=== PATIENT | male | born 1945 | race Caucasian/White ===

== ENCOUNTER 2016-10-11 17:48 | Inpatient (IN) | payer MEDICARE ==
[~2016-10-11] VITALS: Ht 177.8 cm; Wt 95.7 kg
[2016-10-11] MEDS ORDERED: SODIUM CHLORIDE 0.9% 2,000 ML ONE (19:51)
[2016-10-11] MEDS ORDERED: SALINE FLUSH 10 ML FLUSH PRN (20:15)
[2016-10-11] MEDS ORDERED: LACTULOSE SOLN 20GM/30ML UDC PO PRN (20:15)
[2016-10-11] MEDS ORDERED: SODIUM CHLORIDE 0.45% 1,000 ML IV SCH (20:15)
[2016-10-11] MEDS ORDERED: ACETAMINOPHEN 325 MG TAB PO PRN (20:15)
[2016-10-11] MEDS ORDERED: ALU/MAG/SIM 30 ML UDC PO PRN (20:15)
[2016-10-11] MEDS ORDERED: SODIUM CHLORIDE 0.9% 100 ML IV ONE (20:27)
[2016-10-11] MEDS ORDERED: CEFTRIAXONE 1 GM VIAL ONE (20:27)
[2016-10-11 23:19] VITALS: BP_SYST 98; RESP 31; TEMP 96.8
[2016-10-11 23:26] VITALS: BMI 33.0
[2016-10-11 23:30] VITALS: BP_SYST 99; RESP 27
[2016-10-11 23:53] VITALS: BP_SYST 96; RESP 25
[2016-10-12] VITALS (47 sets, daily range): BP systolic 61–104; RESP 16–26; TEMP 96.4–98.3
[2016-10-12] MEDS: SODIUM CHLORIDE 0.9% FLUSH BAG 500 ML IV SCH (05:09)
[2016-10-12] MEDS ORDERED: SODIUM CHLORIDE 0.9% 1,000 ML IV ONE (06:15)
[2016-10-12] MEDS ORDERED: DEXTROSE 50% SYRINGE 50 ML IV PRN (06:20)
[2016-10-12] MEDS ORDERED: GLUCAGON 1 MG VIAL IM PRN (06:20)
[2016-10-12] MEDS ORDERED: PHARMACY TO DOSE ZOSYN IV SCH (08:05)
[2016-10-12] MEDS ORDERED: PHARMACY TO DOSE VANCOMYCIN IV SCH (08:05)
[2016-10-12] MEDS ORDERED: CEFTRIAXONE 1 GM in SODIUM CHLORIDE 0.9% 50 ML IV SCH (09:00)
[2016-10-12] MEDS: SALINE FLUSH 10 ML FLUSH SCH ×2 (09:05→20:44)
[2016-10-12] MEDS: DILAUDID 1 MG/ML AMP IV PRN ×2 (09:08→13:24)
[2016-10-12] MEDS: SODIUM CHLORIDE 0.9% 1,000 ML IV SCH ×2 (09:15→19:44)
[2016-10-12] MEDS ORDERED: VANCOMYCIN 2,500 MG in SODIUM CHLORIDE 0.9% 500 ML IV ONE (09:45)
[2016-10-12] MEDS: PIPERACIL/TAZO 2.25GM/50ML 50 ML IV SCH ×3 (11:01→22:08)
[2016-10-12] MEDS: BACITRACIN OINT TOPICAL SCH (20:44)
[2016-10-12] MEDS: COLLAGENASE OINT 30 GM TOPICAL SCH (20:44)
[2016-10-12] MEDS ORDERED: DIPHENHYDRAMINE 50 MG/ML VIAL IV ONE (23:35)
[2016-10-13] VITALS (23 sets, daily range): BP systolic 82–122; RESP 18–28; TEMP 97.6–98.6
[2016-10-13] MEDS: SODIUM CHLORIDE 0.9% 1,000 ML IV SCH ×3 (02:41→20:17)
[2016-10-13] MEDS: PIPERACIL/TAZO 2.25GM/50ML 50 ML IV SCH ×2 (04:16→09:15)
[2016-10-13] MEDS: SODIUM CHLORIDE 0.9% FLUSH BAG 500 ML IV SCH (06:00)
[2016-10-13] MEDS: COLLAGENASE OINT 30 GM TOPICAL SCH (09:14)
[2016-10-13] MEDS: BACITRACIN OINT TOPICAL SCH ×2 (09:14→20:20)
[2016-10-13] MEDS: SALINE FLUSH 10 ML FLUSH SCH ×2 (09:14→20:17)
[2016-10-13] MEDS: VANCOMYCIN 2,000 MG in SODIUM CHLORIDE 0.9% 500 ML IV SCH (09:15)
[2016-10-13] MEDS: DIPHENHYDRAMINE 25 MG CAP PO PRN ×2 (12:54→23:59)
[2016-10-13] MEDS: PIPERACIL/TAZO 3.375GM/50ML 50 ML IV SCH ×2 (17:09→23:36)
[2016-10-13] MEDS ORDERED: MISSING DOSE XX ONE (23:35)
[2016-10-14] VITALS (22 sets, daily range): BP systolic 95–123; RESP 15–31; TEMP 98.4–100.4
[2016-10-14] MEDS: PIPERACIL/TAZO 3.375GM/50ML 50 ML IV SCH (05:00)
[2016-10-14] MEDS: SODIUM CHLORIDE 0.9% FLUSH BAG 500 ML IV SCH (05:00)
[2016-10-14] MEDS ORDERED: SODIUM CHLORIDE 0.9% 1,000 ML IV SCH (08:20)
[2016-10-14] MEDS ORDERED: KCL CR 10 MEQ CAP PO ONE (08:20)
[2016-10-14] MEDS ORDERED: POTASSIUM PHOSPHATE 45 MMOL in SODIUM CHLORIDE 0.9% 500 ML IV ONE (08:20)
[2016-10-14] MEDS: SALINE FLUSH 10 ML FLUSH SCH ×2 (08:36→21:53)
[2016-10-14] MEDS ORDERED: PHARMACY TO DOSE LEVAQUIN IV SCH (10:40)
[2016-10-14] MEDS: COLLAGENASE OINT 30 GM TOPICAL SCH (10:56)
[2016-10-14] MEDS: BACITRACIN OINT TOPICAL SCH ×2 (10:56→21:53)
[2016-10-14] MEDS ORDERED: VANCOMYCIN 1,500 MG in SODIUM CHLORIDE 0.9% 250 ML IV SCH (11:00)
[2016-10-14] MEDS ORDERED: VANCOMYCIN 1,750 MG in SODIUM CHLORIDE 0.9% 500 ML IV SCH (11:00)
[2016-10-14] MEDS: LEVOFLOXACIN 500 MG/100 ML 100 ML IV SCH (12:29)
[2016-10-14] MEDS: DIPHENHYDRAMINE 25 MG CAP PO PRN (21:53)
[2016-10-14] MEDS: ARTIF TEARS OP SOLN 0.4ML EYE EACH SCH (21:53)
[2016-10-15] VITALS (7 sets, daily range): BP systolic 106–145; RESP 20–22; TEMP 97.2–98.8
[2016-10-15] MEDS: SODIUM CHLORIDE 0.9% FLUSH BAG 500 ML IV SCH (04:08)
[2016-10-15] MEDS: SALINE FLUSH 10 ML FLUSH SCH ×2 (08:00→20:09)
[2016-10-15] MEDS ORDERED: POTASSIUM PHOSPHATE 15 MMOL in SODIUM CHLORIDE 0.9% 250 ML IV ONE (08:25)
[2016-10-15] MEDS: COLLAGENASE OINT 30 GM TOPICAL SCH (09:16)
[2016-10-15] MEDS: LEVOFLOXACIN 500 MG/100 ML 100 ML IV SCH (09:16)
[2016-10-15] MEDS: BACITRACIN OINT TOPICAL SCH ×2 (09:16→20:10)
[2016-10-15] MEDS ORDERED: MISSING DOSE XX ONE (09:25)
[2016-10-15] MEDS: VANCOMYCIN 2,000 MG in SODIUM CHLORIDE 0.9% 500 ML IV SCH (10:00)
[2016-10-15] MEDS: ARTIF TEARS OP SOLN 0.4ML EYE EACH SCH ×2 (10:14→20:10)
[2016-10-15] MEDS ORDERED: VANCOMYCIN 2,000 MG in SODIUM CHLORIDE 0.9% 500 ML IV SCH (14:00)
[2016-10-15] MEDS ORDERED: PHARMACY TO DOSE VANCOMYCIN IV SCH (14:10)
[2016-10-15] MEDS: DILAUDID 1 MG/ML AMP IV PRN (16:05)
[2016-10-15] MEDS: ONDANSETRON 4 MG VIAL IV PUSH PRN (20:41)
[2016-10-15] MEDS: PROMETHAZINE 25 MG/ML VIAL IV PRN (23:05)
[2016-10-16] VITALS (7 sets, daily range): BP systolic 104–150; RESP 18–20; TEMP 97.3–99.3
[2016-10-16] MEDS: ONDANSETRON 4 MG VIAL IV PUSH PRN (03:57)
[2016-10-16] MEDS: SODIUM CHLORIDE 0.9% FLUSH BAG 500 ML IV SCH (05:59)
[2016-10-16] MEDS: ARTIF TEARS OP SOLN 0.4ML EYE EACH SCH ×2 (08:38→21:57)
[2016-10-16] MEDS: LEVOFLOXACIN 500 MG/100 ML 100 ML IV SCH (08:38)
[2016-10-16] MEDS: SALINE FLUSH 10 ML FLUSH SCH ×2 (08:38→20:00)
[2016-10-16] MEDS ORDERED: DOCUSATE SOD 100 MG CAP PO SCH (09:00)
[2016-10-16] MEDS: DEXTROSE 5% SALINE 0.45% 1,000 ML IV SCH (10:48)
[2016-10-16] MEDS: OMNIPAQUE 240 MG/ML, 50 ML PO SCH ×2 (11:19→13:25)
[2016-10-16] MEDS: BACITRACIN OINT TOPICAL SCH ×2 (13:29→21:57)
[2016-10-16] MEDS: COLLAGENASE OINT 30 GM TOPICAL SCH (13:29)
[2016-10-16] MEDS ORDERED: OPTIRAY 350 100 ML VIAL HMH IV ONE (16:50)
[2016-10-17] VITALS (15 sets, daily range): BP systolic 88–134; RESP 18–29; TEMP 97.7–100.1
[2016-10-17] MEDS: DEXTROSE 5% SALINE 0.45% 1,000 ML IV SCH (02:05)
[2016-10-17] MEDS: SODIUM CHLORIDE 0.9% FLUSH BAG 500 ML IV SCH (05:47)
[2016-10-17] MEDS ORDERED: POTASSIUM PHOSPHATE 30 MMOL in SODIUM CHLORIDE 0.9% 250 ML IV ONE (08:35)
[2016-10-17] MEDS ORDERED: DEXTROSE 5% 1,000 ML IV SCH (08:35)
[2016-10-17] MEDS: LEVOFLOXACIN 500 MG/100 ML 100 ML IV SCH (09:57)
[2016-10-17] MEDS: SALINE FLUSH 10 ML FLUSH SCH ×2 (09:58→19:49)
[2016-10-17] MEDS: BACITRACIN OINT TOPICAL SCH ×2 (09:58→19:49)
[2016-10-17] MEDS: ARTIF TEARS OP SOLN 0.4ML EYE EACH SCH ×2 (09:58→19:49)
[2016-10-17] MEDS: COLLAGENASE OINT 30 GM TOPICAL SCH (09:58)
[2016-10-17] MEDS ORDERED: MISSING DOSE XX ONE ×2 (17:25→22:35)
[2016-10-17] MEDS ORDERED: PHARMACY TO DOSE ZOSYN IV SCH (20:30)
[2016-10-17] MEDS ORDERED: PHARMACY TO DOSE VANCOMYCIN IV SCH (20:30)
[2016-10-17] MEDS ORDERED: AMIODARONE 450 MG in DEXTROSE 5% AVIVA 250 ML IV SCH (20:30)
[2016-10-17] MEDS ORDERED: VANCOMYCIN 2,000 MG in SODIUM CHLORIDE 0.9% 500 ML IV SCH (21:00)
[2016-10-18] VITALS (28 sets, daily range): BP systolic 90–113; RESP 11–25; TEMP 97.3–99.3
[2016-10-18] MEDS: DILAUDID 1 MG/ML AMP IV PRN ×4 (00:10→20:50)
[2016-10-18] MEDS ORDERED: MISSING DOSE XX ONE ×2 (00:15→22:25)
[2016-10-18] MEDS: PIPERACIL/TAZO 3.375GM/50ML 50 ML IV SCH ×2 (00:26→05:50)
[2016-10-18] MEDS: SODIUM CHLORIDE 0.9% FLUSH BAG 500 ML IV SCH (05:49)
[2016-10-18] MEDS: SALINE FLUSH 10 ML FLUSH SCH ×2 (08:24→20:49)
[2016-10-18] MEDS: BACITRACIN OINT TOPICAL SCH ×2 (08:25→20:55)
[2016-10-18] MEDS: ARTIF TEARS OP SOLN 0.4ML EYE EACH SCH ×2 (08:25→20:49)
[2016-10-18] MEDS: COLLAGENASE OINT 30 GM TOPICAL SCH (08:49)
[2016-10-18] MEDS: CEFTRIAXONE 2 GM in SODIUM CHLORIDE 0.9% 50 ML IV SCH (10:44)
[2016-10-18] MEDS: KCL CR 10 MEQ CAP PO ONE ×2 (11:31→11:50)
[2016-10-18] MEDS: D5 W/KCL 20MEQ/L 1,000 ML IV SCH ×2 (11:32→23:56)
[2016-10-18] MEDS ORDERED: *PATIENT RECEIVING TUBE FEEDS, ASSESS/ADJUST MEDICATIONS NG SCH (11:50)
[2016-10-18] MEDS ORDERED: DIPHENHYDRAMINE 25 MG/10 ML UDC NG PRN (11:55)
[2016-10-18] MEDS ORDERED: ACETAMINOPHEN 650 MG/20.3 ML UDC NG PRN (11:55)
[2016-10-18] MEDS ORDERED: ALU/MAG/SIM 30 ML UDC NG PRN (11:55)
[2016-10-18] MEDS ORDERED: KCL 20 MEQ/15 ML UDC PO ONE (11:55)
[2016-10-18] MEDS: MICONAZOLE 2% PWD TOPICAL SCH (20:49)
[2016-10-18] MEDS: VANCOMYCIN 2,000 MG in SODIUM CHLORIDE 0.9% 500 ML IV SCH (22:14)
[2016-10-19] VITALS (24 sets, daily range): BP systolic 95–131; RESP 10–21; TEMP 97.5–99.3; Ht 177.8 cm; Wt 95.7 kg
[2016-10-19] MEDS: DILAUDID 1 MG/ML AMP IV PRN ×2 (00:49→11:06)
[2016-10-19] MEDS: SODIUM CHLORIDE 0.9% FLUSH BAG 500 ML IV SCH (05:20)
[2016-10-19] MEDS: CEFTRIAXONE 2 GM in SODIUM CHLORIDE 0.9% 50 ML IV SCH (09:04)
[2016-10-19] MEDS: SALINE FLUSH 10 ML FLUSH SCH ×2 (09:04→19:58)
[2016-10-19] MEDS: ARTIF TEARS OP SOLN 0.4ML EYE EACH SCH ×2 (09:04→19:57)
[2016-10-19] MEDS: MICONAZOLE 2% PWD TOPICAL SCH ×2 (09:05→19:57)
[2016-10-19] MEDS: BACITRACIN OINT TOPICAL SCH ×2 (09:05→19:57)
[2016-10-19] MEDS ORDERED: MISSING DOSE XX ONE (15:20)
[2016-10-19] MEDS: D5 W/KCL 20MEQ/L 1,000 ML IV SCH (18:42)
[2016-10-19] MEDS: VANCOMYCIN 2,000 MG in SODIUM CHLORIDE 0.9% 500 ML IV SCH (22:07)
[2016-10-20] VITALS (24 sets, daily range): BP systolic 91–135; RESP 13–23; TEMP 97.9–98.9
[2016-10-20] MEDS ORDERED: MISSING DOSE XX ONE ×2 (00:55→18:50)
[2016-10-20] MEDS: DILAUDID 1 MG/ML AMP IV PRN ×3 (04:57→20:18)
[2016-10-20] MEDS: SODIUM CHLORIDE 0.9% FLUSH BAG 500 ML IV SCH (06:00)
[2016-10-20] MEDS ORDERED: KCL 20 MEQ/15 ML UDC PO ONE (08:30)
[2016-10-20] MEDS: SALINE FLUSH 10 ML FLUSH SCH ×3 (09:02→20:19)
[2016-10-20] MEDS: BACITRACIN OINT TOPICAL SCH ×2 (09:02→19:45)
[2016-10-20] MEDS: ARTIF TEARS OP SOLN 0.4ML EYE EACH SCH ×2 (09:02→19:45)
[2016-10-20] MEDS: MICONAZOLE 2% PWD TOPICAL SCH ×2 (09:02→19:45)
[2016-10-20] MEDS: CEFTRIAXONE 2 GM in SODIUM CHLORIDE 0.9% 50 ML IV SCH (09:03)
[2016-10-20] MEDS: D5 W/KCL 20MEQ/L 1,000 ML IV SCH (20:19)
[2016-10-21] VITALS (19 sets, daily range): BP systolic 95–134; RESP 13–20; TEMP 97.4–99.1
[2016-10-21] MEDS: DILAUDID 1 MG/ML AMP IV PRN ×6 (00:32→22:44)
[2016-10-21] MEDS: SODIUM CHLORIDE 0.9% FLUSH BAG 500 ML IV SCH (06:00)
[2016-10-21] MEDS ORDERED: D5 W/KCL 20MEQ/L 1,000 ML IV SCH (07:50)
[2016-10-21] MEDS: ARTIF TEARS OP SOLN 0.4ML EYE EACH SCH ×2 (10:00→20:56)
[2016-10-21] MEDS: CEFTRIAXONE 2 GM in SODIUM CHLORIDE 0.9% 50 ML IV SCH (10:00)
[2016-10-21] MEDS: SALINE FLUSH 10 ML FLUSH SCH (10:01)
[2016-10-21] MEDS: MICONAZOLE 2% PWD TOPICAL SCH ×2 (10:01→20:56)
[2016-10-21] MEDS: BACITRACIN OINT TOPICAL SCH ×2 (10:01→20:56)
[2016-10-21] MEDS: Furosemide 40 MG TAB PO SCH (16:10)
[2016-10-22] MEDS: DILAUDID 1 MG/ML AMP IV PRN ×5 (02:52→23:09)
[2016-10-22 03:37] VITALS: BP_SYST 100; RESP 16; TEMP 97.4
[2016-10-22 07:14] VITALS: BP_SYST 120; RESP 18; TEMP 97.6
[2016-10-22] MEDS ORDERED: MISSING DOSE XX ONE (08:00)
[2016-10-22] MEDS: CEFTRIAXONE 2 GM in SODIUM CHLORIDE 0.9% 50 ML IV SCH (08:08)
[2016-10-22] MEDS: Furosemide 40 MG TAB PO SCH (08:09)
[2016-10-22] MEDS: ARTIF TEARS OP SOLN 0.4ML EYE EACH SCH ×2 (08:09→21:50)
[2016-10-22] MEDS: MICONAZOLE 2% PWD TOPICAL SCH ×2 (10:51→21:49)
[2016-10-22] MEDS: BACITRACIN OINT TOPICAL SCH ×2 (10:52→21:50)
[2016-10-22] MEDS: LEVOFLOXACIN 500 MG TAB PO SCH (10:52)
[2016-10-22 11:15] VITALS: BP_SYST 117; RESP 16; TEMP 98.4
[2016-10-22 15:13] VITALS: BP_SYST 111; RESP 18; TEMP 98.1
[2016-10-22 19:35] VITALS: BP_SYST 112; RESP 18; TEMP 98.3
[2016-10-22 22:59] VITALS: BP_SYST 116; RESP 18; TEMP 98.5
[2016-10-22] MEDS: PROMETHAZINE 25 MG/ML VIAL IV PRN (23:09)
[2016-10-23] MEDS: DILAUDID 1 MG/ML AMP IV PRN ×4 (03:34→17:49)
[2016-10-23 03:55] VITALS: BP_SYST 120; RESP 18; TEMP 97.5
[2016-10-23 07:32] VITALS: BP_SYST 114; RESP 18; TEMP 97.6
[2016-10-23] MEDS ORDERED: MISSING DOSE XX ONE (09:25)
[2016-10-23] MEDS: ARTIF TEARS OP SOLN 0.4ML EYE EACH SCH ×2 (09:26→20:09)
[2016-10-23] MEDS: LEVOFLOXACIN 500 MG TAB PO SCH (09:26)
[2016-10-23] MEDS: Furosemide 40 MG TAB PO SCH (09:26)
[2016-10-23] MEDS: MICONAZOLE 2% PWD TOPICAL SCH ×2 (09:27→20:10)
[2016-10-23] MEDS: BACITRACIN OINT TOPICAL SCH ×2 (09:27→20:10)
[2016-10-23 11:23] VITALS: BP_SYST 104; RESP 18; TEMP 97.8
[2016-10-23 15:26] VITALS: BP_SYST 91; RESP 18; TEMP 98.3
[2016-10-23 19:40] VITALS: BP_SYST 111; RESP 18; TEMP 98.5
[2016-10-23 23:00] VITALS: BP_SYST 90; RESP 18; TEMP 98.6
[2016-10-24] MEDS: DILAUDID 1 MG/ML AMP IV PRN ×4 (06:17→22:28)
[2016-10-24 07:23] VITALS: BP_SYST 107; TEMP 97.8
[2016-10-24] MEDS: LEVOFLOXACIN 500 MG TAB PO SCH (08:17)
[2016-10-24] MEDS: Furosemide 40 MG TAB PO SCH (08:17)
[2016-10-24] MEDS: BACITRACIN OINT TOPICAL SCH (08:20)
[2016-10-24] MEDS: MICONAZOLE 2% PWD TOPICAL SCH ×2 (08:20→22:29)
[2016-10-24] MEDS: ARTIF TEARS OP SOLN 0.4ML EYE EACH SCH ×2 (08:24→22:29)
[2016-10-24 12:36] VITALS: BP_SYST 102; RESP 18; TEMP 98.1
[2016-10-24 15:37] VITALS: BP_SYST 124; RESP 18; TEMP 97.9
[2016-10-24 20:05] VITALS: BP_SYST 137; RESP 18; TEMP 98.3
[2016-10-24] MEDS ORDERED: MISSING DOSE XX ONE (20:25)
[2016-10-24 23:10] VITALS: BP_SYST 118; RESP 18; TEMP 97.7
[2016-10-25] MEDS: DILAUDID 1 MG/ML AMP IV PRN ×2 (02:42→09:55)
[2016-10-25 05:03] VITALS: BP_SYST 117; RESP 18; TEMP 98.2
[2016-10-25] MEDS: BACITRACIN OINT TOPICAL SCH ×2 (05:06→09:00)
[2016-10-25 08:04] VITALS: BP_SYST 111; RESP 18; TEMP 97.6
[2016-10-25] MEDS: Furosemide 40 MG TAB PO SCH (09:45)
[2016-10-25] MEDS: ARTIF TEARS OP SOLN 0.4ML EYE EACH SCH (09:45)
[2016-10-25] MEDS: LEVOFLOXACIN 500 MG TAB PO SCH (09:45)
[2016-10-25] MEDS ORDERED: LACTULOSE SOLN 20GM/30ML UDC NG PRN (10:05)
[2016-10-25] MEDS ORDERED: ACETAMINOPHEN 325 MG TAB PO PRN (10:15)
[2016-10-25] MEDS ORDERED: ALU/MAG/SIM 30 ML UDC PO PRN (10:20)
[2016-10-25] MEDS ORDERED: DIPHENHYDRAMINE 25 MG CAP PO PRN (10:20)
[2016-10-25] MEDS ORDERED: LACTULOSE SOLN 20GM/30ML UDC PO PRN (10:20)
[2016-10-25] MEDS: MICONAZOLE 2% PWD TOPICAL SCH (10:26)
[2016-10-25 11:49] VITALS: BP_SYST 129; RESP 18; TEMP 97.7
[2016-10-25 15:27] VITALS: BP_SYST 129; RESP 18; TEMP 97.7
[2016-10-26] MEDS ORDERED: Furosemide 40 MG TAB PO SCH (09:00)
[2016-10-26] MEDS ORDERED: FUROSEMIDE 10 MG/ML NG SCH (09:00)
[2016-10-26] MEDS ORDERED: LEVOFLOXACIN 500 MG TAB PO SCH (09:00)
== END 2016-10-25 12:28 | disposition home or self-care (01) | DRG 872 ==
LOC: ENRESERVDT → ENRESERV → ENRESERVTM → ER 17:48 → EMR 20:12 → DELPENDDIS 20:12 → ENPENDDIS 20:12 → CCU 22:58 → PCU 10-15 01:24 → ICU 10-17 21:37 → PCU2 10-21 16:59 → 4NT 10-24 12:39
PROVIDERS: ADMIT Internal Medicine Nephrology; ATTEND Internal Medicine Nephrology
DX: A41.9 Sepsis, unspecified organism (principal); N17.9 Acute kidney failure, unspecified; E87.0 Hyperosmolality and hypernatremia; E44.0 Moderate protein-calorie malnutrition; I11.0 Hypertensive heart disease with heart failure; I50.32 Chronic diastolic (congestive) heart failure; E87.2 Acidosis; K56.0 Paralytic ileus; M62.82 Rhabdomyolysis; N39.0 Urinary tract infection, site not specified; I47.1 Supraventricular tachycardia; I69.351 Hemiplegia and hemiparesis following cerebral infarction affecting right dominant side; E86.0 Dehydration; E11.42 Type 2 diabetes mellitus with diabetic polyneuropathy; Z79.4 Long term (current) use of insulin; E78.5 Hyperlipidemia, unspecified; M10.9 Gout, unspecified; E86.1 Hypovolemia; E83.52 Hypercalcemia; Z68.33 Body mass index [BMI] 33.0-33.9, adult; E88.09 Other disorders of plasma-protein metabolism, not elsewhere classified; B95.2 Enterococcus as the cause of diseases classified elsewhere; M62.3 Immobility syndrome (paraplegic); G51.0 Bell's palsy; Z85.038 Personal history of other malignant neoplasm of large intestine; Z79.82 Long term (current) use of aspirin; S50.02XA Contusion of left elbow, initial encounter; S80.01XA Contusion of right knee, initial encounter; W07.XXXA Fall from chair, initial encounter; Y92.019 Unspecified place in single-family (private) house as the place of occurrence of the external cause; Z92.21 Personal history of antineoplastic chemotherapy
CPT/HCPCS: 36415; 36600; 51702; 70450; 70486; 71010; 72125; 74020; 74177; 80047; 80053; 80069; 80202; 80307; 80320; 81001; 82140; 82550; 82553; 82947; 83605; 83735; 84439; 84443; 84484; 85014; 85025; 85610; 85730; 87040; 87077; 87088; 87186; 87493; 93005; 93306; 96361; 96365